=== PATIENT | female | born 1955 | race Caucasian/White ===

== ENCOUNTER 2017-08-19 10:04 | Emergency (ER) | payer MEDICAID ==
[~2017-08-19] VITALS: Ht 157.5 cm; Wt 72.6 kg
[2017-08-19] MEDS ORDERED: ONDANSETRON HCL/PF 4 MG/2 ML VIAL ONE (10:12)
[2017-08-19] MEDS ORDERED: MORPHINE SULFATE INJ 2 MG/ML DISP.SYRIN ONE (10:12)
[2017-08-19] MEDS ORDERED: MORPHINE SULFATE INJ 4 MG/ML DISP.SYRIN ONE (10:13)
[2017-08-19] MEDS ORDERED: IOHEXOL-350 100 ML VIAL IV ONE (10:13)
[2017-08-19] MEDS ORDERED: IV NS 0.9% 500 ML IV ONE (10:13)
[2017-08-19] MEDS: IV NS 0.9% 1,000 ML BAG IV ONE (10:21)
[2017-08-19] MEDS: ONDANSETRON HCL/PF 4 MG/2 ML VIAL IVP ONE (10:22)
[2017-08-19] MEDS: MORPHINE SULFATE INJ 2 MG/ML DISP.SYRIN IV ONE (10:22)
--- NOTE | 2017-08-19 10:22 | NUR ---
PATIENT TO ED DT RIGHT LOWER ABDOMINAL PAIN, 10/10, RADIATING TO LOWER BACK SINCE THIS MORNING. PATIENT ALSO REPORTED NAUSEA, NO VOMITTING, PT IS AFBERILE. REPORTED DYSURIA. VSS.
--- NOTE | 2017-08-19 10:23 | NUR ---
PATIENT WAS TAKEN TO CT
[2017-08-19 10:34] LABS: BASOPHILS # (AUTO) 0.1 /CMM (0.0-0.2); BASOPHILS % (AUTO) 0.6 % (0.0-2.0); EOSINOPHILS # (AUTO) 0.1 /CMM (0.0-0.7); EOSINOPHILS % (AUTO) 0.7 % (0.0-6.0); HEMATOCRIT 44 % (33-45); HEMOGLOBIN 15.4 g/dL (11.5-14.8); LYMPHOCYTES # (AUTO) 2.8 /CMM (0.8-4.8); LYMPHOCYTES % (AUTO) 25.3 % (20.0-44.0); MEAN CORPUSCULAR HEMOGLOBIN 32 PG (26.0-33.0); MEAN CORPUSCULAR HGB CONC 35 g/dl (31.0-36.0); MEAN CORPUSCULAR VOLUME 90 fL (82-100); MONOCYTES # (AUTO) 0.5 /CMM (0.1-1.30); MONOCYTES % (AUTO) 4.9 % (2.0-12.0); NEUTROPHILS # (AUTO) 7.6 /CMM (1.8-8.9); NEUTROPHILS % (AUTO) 68.5 % (43.0-81.0); PLATELET COUNT (AUTO) 260 /CMM (150-450); RED BLOOD CELL COUNT(AUTO) 4.91 MIL/uL (4.0-5.2); WHITE BLOOD COUNT (AUTO) 11.1 K/uL (4.3-11.0)
[2017-08-19 10:42] LABS: CALCIUM, SERUM 9.5 mg/dL (8.5-10.1); CREATININE 0.9 mg/dL (0.6-1.3); POTASSIUM 3.7 mmol/L (3.5-5.1)
[2017-08-19 10:48] LABS: ALBUMIN 4.2 g/dL (3.4-5.0); BILIRUBIN,DIRECT 0.1 mg/dL (0.0-0.2); BILIRUBIN,TOTAL 0.4 mg/dL (0.2-1.0); TOTAL PROTEIN, SERUM 7.9 g/dL (6.4-8.2)
[2017-08-19 11:50] LABS: APPEARANCE,URINE Clear (CLEAR); BILIRUBIN,URINE Negative (NEGATIVE); BLOOD, URINE Large Ery/uL (NEGATIVE); COLOR,URINE Yellow (YELLOW); KETONES,URINE Negative (NEGATIVE); LEUKOCYTE ESTERASE ,URINE Negative (NEGATIVE); NITRITE, URINE Negative (NEGATIVE); PROTEIN,URINE Negative (NEGATIVE); UGLUCOSE Negative (NEGATIVE); UROBILINOGEN,URINE 0.2 EU/dL (0.2)
[2017-08-19] MEDS ORDERED: KETOROLAC TROMETHAMINE INJ 30 MG/ML VIAL ONE (11:59)
[2017-08-19] MEDS: KETOROLAC TROMETHAMINE INJ 30 MG/ML VIAL IV ONE (12:01)
[2017-08-19 12:05] LABS: BACTERIA,URINE Rare /HPF (None Seen); RBC,URINE TOO NUMEROUS TO COUN /HPF (0-2); SQUAMOUS EPITHELIAL CELL,UR Few /HPF (None Seen); WBC,URINE 0-2 /HPF (0-3)
[2017-08-19 12:30] VITALS: BP 161/93
--- NOTE | 2017-08-19 12:30 | NUR ---
Patient discharged to home in stable condition. Written and verbal after care instructions given. Patient verbalizes understanding of instruction.IV removed. Catheter intact and site benign. Pressure and 4x4 applied to site. No bleeding noted.
== END 2017-08-19 12:31 | disposition home or self-care (01) ==
LOC: ER 10:06
DX: N23 Unspecified renal colic (principal); R31.0 Gross hematuria; F17.200 Nicotine dependence, unspecified, uncomplicated; I10 Essential (primary) hypertension
CPT/HCPCS: 36415; 74174; 80048; 80076; 81001; 83690; 85025; 96361; 96374; 96375; 99285; A4606; J1885; J2270 ×2; J2405; J7040; Q9967; Z7610; 81000-TC

== ENCOUNTER 2019-05-29 20:43 | Emergency (ER) | payer MEDICAID ==
[~2019-05-29] VITALS: Ht 157.5 cm; Wt 68.0 kg
--- NOTE | 2019-05-29 20:45 | NUR ---
TO BED 1 AMBULATORY WITH DAUGHTER C/O L SIDED CP RADIATING TO BACK SINCE THIS MORNING. PT AAOX4 NO ACUTE DISTRESS NOTED, RESP EVEN AND UNLABORED. SKIN WARM NONDIAPHORETIC. PLACE PT ON CARDIAC MONITORING, CONTINUOUS POX. PENDING ER MD MCQUEEN.
--- NOTE | 2019-05-29 20:55 | NUR ---
TECH AT BEDSIDE FOR EKG
--- NOTE | 2019-05-29 21:12 | NUR ---
BLOOD DRAWN AND GIVEN TO LAB
[2019-05-29 21:18] LABS: BASOPHILS # (AUTO) 0.1 /CMM (0.0-0.2); BASOPHILS % (AUTO) 0.7 % (0.0-2.0); EOSINOPHILS % (AUTO) 1.5 % (0.0-6.0); HEMATOCRIT 45 % (33-45); HEMOGLOBIN 15.6 g/dL (11.5-14.8); LYMPHOCYTES # (AUTO) 3.5 /CMM (0.8-4.8); LYMPHOCYTES % (AUTO) 37.2 % (20.0-44.0); MEAN CORPUSCULAR HGB CONC 35 g/dl (31.0-36.0); MEAN CORPUSCULAR VOLUME 94 fL (82-100); MONOCYTES # (AUTO) 0.6 /CMM (0.1-1.30); MONOCYTES % (AUTO) 6.7 % (2.0-12.0); NEUTROPHILS % (AUTO) 53.9 % (43.0-81.0); PLATELET COUNT (AUTO) 234 /CMM (150-450); RED BLOOD CELL COUNT(AUTO) 4.78 MIL/uL (4.0-5.2); WHITE BLOOD COUNT (AUTO) 9.3 K/uL (4.3-11.0)
[2019-05-29 21:31] LABS: CALCIUM, SERUM 9.5 mg/dL (8.5-10.1); CARBON DIOXIDE 23 mmol/L (21-32); CHLORIDE 105 mmol/L (98-107); GLUCOSE 131 mg/dL (74-106); SODIUM SERUM 142 mmol/L (136-145); UREA NITROGEN, BLOOD 14 mg/dL (7-18)
--- NOTE | 2019-05-29 21:38 | NUR ---
TECH AT BEDSIDE FOR REPEAT EKG
[2019-05-29 21:44] VITALS: BP 159/77
--- NOTE | 2019-05-29 22:39 | NUR ---
AMA PAPERWORK SIGNED. PT BEING DISCHARGED. AWARE.
--- NOTE | 2019-05-29 22:54 | NUR ---
Patient does not wish to proceed with medical care recommended by Dr. SMILEY. Patient given information related to possible complications, up to and including , which could occur as a result of leaving the hospital at this time. Patient verbalizes understanding of risks involved due to leaving against medical advice. Patient has signed AMA form. PT AMBULATORY WITH STEADY GAIT ACCOMPANIED BY DAUGHTER.
== END 2019-05-29 22:55 | disposition left against medical advice (07) ==
LOC: ER 20:47
DX: R07.89 Other chest pain (principal); F17.200 Nicotine dependence, unspecified, uncomplicated; R00.0 Tachycardia, unspecified; I10 Essential (primary) hypertension; I25.10 Atherosclerotic heart disease of native coronary artery without angina pectoris; Z98.61 Coronary angioplasty status; Z98.890 Other specified postprocedural states
CPT/HCPCS: 36415; 71045-TC; 80048-TC; 84484-TC; 85025-TC